=== PATIENT | female | born 1955 | race Caucasian/White ===

== ENCOUNTER 2017-11-20 08:30 | Day surgery (SDC) | payer OTHER ==
[~2017-11-20] VITALS: Ht 175.3 cm; Wt 68.0 kg
[~2017-11-20 08:30] MED LIST: LO-DOSE ASPIRIN81 M2 PO; ONE DAILY WOME1 EACH PO; PRINIVIL10 MG PO; ZOCOR40 MG PO
[2017-11-20 09:24] VITALS: BP 152/74
[2017-11-20 14:42] VITALS: BP 135/74
[2017-11-20 15:42] VITALS: BP 115/70
[2017-11-20 17:42] VITALS: BP 120/61
[2017-11-20 19:00] VITALS: BP 118/60
== END 2017-11-20 19:20 | disposition home or self-care (01) ==
LOC: SDC 08:30
PROC: 0PSD04Z Reposition Left Humeral Head with Internal Fixation Device, Open Approach (ICD-10-PCS; principal; 2017-11-20)
DX: S42.202A Unspecified fracture of upper end of left humerus, initial encounter for closed fracture (principal); I10 Essential (primary) hypertension; E78.5 Hyperlipidemia, unspecified; Z82.49 Family history of ischemic heart disease and other diseases of the circulatory system; V89.2XXA Person injured in unspecified motor-vehicle accident, traffic, initial encounter
CPT/HCPCS: 73030; 76000; C1713; J0131; J0690; J1100; J1170; J2250; J2405; J2710; J2765; J3010; J7050; J7643